=== PATIENT | male | born 1955 | race Caucasian/White ===

== ENCOUNTER 2019-08-28 12:18 | Outpatient (CLI) | payer OTHER ==
--- NOTE | 2019-08-28 13:58 | RAD ---
LUMBAR SPINE SERIES 3 VIEWS: Date: 08/28/2019 HISTORY: Back pain. FINDINGS: The vertebral bodies are normal in height. There is severe degenerative disc narrowing at all vertebr al body levels with the exception of L5-S1. There is spondylolisthesis of l4 on L5 of approximately 1 0.0 mm. Pedicles are intact. Degenerative facet changes are present. Cannot exclude the presence of a pars defect at the L4-5 level. IMPRESSION: Severe arthritic changes of the spine. POS: RUPAL
== END 2019-08-28 12:19 | disposition home or self-care (01) ==
LOC: NAV RAD 12:18
PROVIDERS: ATTEND Family Medicine
DX: M54.16 Radiculopathy, lumbar region (principal); M46.96 Unspecified inflammatory spondylopathy, lumbar region
CPT/HCPCS: 72100

== ENCOUNTER 2020-03-10 02:24 | Emergency (ER) | payer OTHER ==
[2020-03-10] MEDS ORDERED: Bisacodyl 10 MG SUPP ONE ×2 (02:59→03:00)
[2020-03-10] MEDS ORDERED: Magnesium Citrate 300 ML BOT ONE (05:07)
== END 2020-03-10 05:38 | disposition home or self-care (01) ==
LOC: NAV ERS 02:24
DX: K59.00 Constipation, unspecified (principal); F41.9 Anxiety disorder, unspecified; F32.9 Major depressive disorder, single episode, unspecified; Z87.891 Personal history of nicotine dependence; Z79.899 Other long term (current) drug therapy
CPT/HCPCS: 99283

== ENCOUNTER 2021-01-05 13:26 | Emergency (ER) | payer OTHER, SELFPAY ==
[2021-01-05 14:47] LABS: Bilirubin Negative (Negative); Blood, Urine Large (Negative); Clarity Turbid (Clear); Glucose, Urine (Dipstick) Negative (Negative); Ketone, Urine Negative (Negative); Leukocyte Small (Negative); Nitrite Positive (Negative); Protein, Urine (Dipstick) > or equal to 300 mg/dL (Neg-Trace); Urobilinogen 0.2 mg/dL (Less than 2)
[2021-01-05 14:49] LABS: pH, Urine Greater/Equal 9.0 (5.0-9.0)
[2021-01-05 14:50] LABS: Bacteria/HPF 3+ HPF (None Seen); RBC/HPF Greater than 50 HPF (0-3); Squamous Epithelial 0-3 HPF (0-3)
== END 2021-01-05 15:06 | disposition home or self-care (01) ==
LOC: NAV ERS 13:26
DX: T83.011A Breakdown (mechanical) of indwelling urethral catheter, initial encounter (principal); N39.0 Urinary tract infection, site not specified; Z87.891 Personal history of nicotine dependence
CPT/HCPCS: 51702; 81003; 81015; 87077; 87086; 87186

== ENCOUNTER 2021-02-20 23:45 | Emergency (ER) | payer OTHER, SELFPAY ==
[2021-02-21 01:17] LABS: Bilirubin Small (Negative); Blood, Urine Large (Negative); Clarity Turbid (Clear); Glucose, Urine (Dipstick) Negative (Negative); Ketone, Urine Negative (Negative); Leukocyte Large (Negative); Nitrite Positive (Negative); Protein, Urine (Dipstick) > or equal to 300 mg/dL (Neg-Trace); Specific Gravity, Urine 1.025 (1.005-1.030)
[2021-02-21 01:35] LABS: RBC/HPF Greater than 50 HPF (0-3)
[2021-02-21 01:52] LABS: #Lymphocytes 1.1 thou/uL (1.20-3.40); #Monocytes 0.7 thou/uL (0.11-0.59); #Neutrophils 5.8 thou/uL (1.40-6.50); %Basophils 0.5 % (0.0-1.0); %Eosinophils 0.6 % (0.0-10.0); %Lymphocytes 14.8 % (21.0-51.0); %Monocytes 8.6 % (0.0-10.0); %Neutrophils 75.5 % (42.0-75.0); Hemoglobin 14.8 g/dL (14.0-18.0); Mean Corpuscular HGB CONC 30.9 g/dL (32.0-36.0); Mean Corpuscular Hemoglobin 29.8 pg (27.0-31.0); Mean Corpuscular Volume 96.3 fL (78.0-98.0); Mean Platelet Volume 5.5 fL (7.4-10.4); Platelet Count 274 thou/uL (130-400); RBC Distribution Width 12.9 % (11.5-14.5); Red Blood Cell (RBC) Count 4.97 mill/uL (4.70-6.10); White Blood Cell (WBC) Count 7.7 thou/uL (4.8-10.8)
[2021-02-21 02:15] LABS: Chloride 104 mmol/L (98-107); Potassium 4.2 mmol/L (3.5-5.1); Sodium 140 mmol/L (136-145)
[2021-02-21 02:16] LABS: Anion Gap 11 mmol/L (10-20); BUN (Urea Nitrogen) 21 mg/dL (8.4-25.7); Calc. Creatinine Clearance 0 mL/min (70-130); Calcium 9.6 mg/dL (7.8-10.44); Carbon Dioxide 29 mmol/L (23-31); Glucose 107 mg/dL (80-115)
== END 2021-02-21 03:59 | disposition home or self-care (01) ==
LOC: NAV ERS 23:45
DX: N40.1 Benign prostatic hyperplasia with lower urinary tract symptoms (principal); R33.8 Other retention of urine; N30.00 Acute cystitis without hematuria; M19.90 Unspecified osteoarthritis, unspecified site; Z86.19 Personal history of other infectious and parasitic diseases; Z87.891 Personal history of nicotine dependence
CPT/HCPCS: 51702; 80048; 81003; 81015; 85025; 87077; 87086; 87186